=== PATIENT | female | born 1940 | race Caucasian/White ===

== ENCOUNTER 2024-02-19 17:58 | Emergency (ER) | payer OTHER ==
[2024-02-19 18:32] VITALS: TEMP 98.2; BMI 29.4
[2024-02-19 19:04] LABS: ANION GAP 7 mmol/L (4-13); CALCIUM 8.7 mg/dl (8.5-10.1); CHLORIDE 102 mmol/L (98-107); CO2 30 mmol/L (21-32); CREATININE 1.4 mg/dl (0.6-1.3); GLUCOSE,RANDOM 110 mg/dl (74-106); SODIUM 139 mmol/L (136-145)
[2024-02-19] MEDS ORDERED: DALBAVANCIN HCL 500 MG VIAL (RESTRICTED TO ID ONLY) IVPB ONE (19:26)
[2024-02-19] MEDS: DALBAVANCIN HCL 1,500 MG in DEXTROSE 5%-WATER - 500 ML IVPB ONE (19:35)
[2024-02-19 20:43] VITALS: BP 154/77; PULSE 79; RESP 16
== END 2024-02-19 21:00 | disposition home or self-care (01) ==
LOC: FER 17:58
DX: M17.12 Unilateral primary osteoarthritis, left knee (principal); M25.562 Pain in left knee; W01.198A Fall on same level from slipping, tripping and stumbling with subsequent striking against other object, initial encounter; Y92.481 Parking lot as the place of occurrence of the external cause
CPT/HCPCS: 36415; 73562-TC-LT-FY; 80048; 99284-25; J0875

== ENCOUNTER 2024-03-07 18:38 | Emergency (ER) | payer OTHER ==
[2024-03-07 18:48] VITALS: BP 149/70; PULSE 73; RESP 20; TEMP 97.7; BMI 30.4
[2024-03-07] MEDS: DALBAVANCIN HCL 1,500 MG in DEXTROSE 5%-WATER - 500 ML IVPB ONE (20:01)
== END 2024-03-07 20:46 | disposition home or self-care (01) ==
LOC: FER 18:38
DX: L03.116 Cellulitis of left lower limb (principal)
CPT/HCPCS: 99284-25; J0875

== ENCOUNTER 2024-04-11 12:28 | Inpatient (IN) | payer OTHER ==
[2024-04-11] MEDS ORDERED: CEFEPIME HCL/D5W 2 GM/50 ML BAG IVPB ONE (14:07)
[2024-04-11] MEDS ORDERED: VANCOMYCIN 1,500 MG in DEXTROSE 5%-WATER - 250 ML IVPB ONE (14:07)
[2024-04-11] MEDS ORDERED: CEFEPIME HCL 2 GM VIAL (RESTRICTED TO ID) ONE (14:09)
[2024-04-11 14:57] LABS: INR 1.18 (0.83-1.09); PROTHROMBIN TIME (PATIENT) 13.4 SEC (9.7-13.0)
[2024-04-11 14:59] LABS: HEMATOCRIT 33.3 % (32.4-45.2); HEMOGLOBIN 9.8 G/dL (10.7-15.3); MCH 22.4 pg (25.7-33.7); MCHC 29.3 g/dl (32.0-36.0); MEAN CELL VOLUME 76.5 fl (80-96); MEAN PLT VOLUME 8.7 fl (7.5-11.1); PLATELET COUNT 325.9 10^3/uL (134-434); RBC 4.35 10^6/uL (3.60-5.2); RDW 17.8 % (11.6-15.6); WHITE BLOOD COUNT 9.5 10^3/uL (4.0-10.8)
[2024-04-11 15:10] LABS: ALBUMIN 4.2 g/dl (3.4-5.0); BILIRUBIN,TOTAL 0.6 mg/dl (0.2-1); CALCIUM 9.1 mg/dl (8.5-10.1); CREATININE 1.1 mg/dl (0.6-1.3); TOT PROT 6.8 g/dl (6.4-8.2)
[2024-04-11 15:12] LABS: POTASSIUM 4.9 mmol/L (3.5-5.1)
[2024-04-11 15:41] LABS: ERYTHROCYTE SEDIMENTATION RATE 19 mm/hr (0-30)
[2024-04-11 17:21] LABS: PLATELET ESTIMATE ADEQUATE
[2024-04-12 00:24] VITALS: BMI 28.8
[2024-04-12] MEDS ORDERED: LISINOPRIL 20 MG TABLET PO SCH (10:00)
[2024-04-12 10:03] LABS: HEMATOCRIT 32.9 % (32.4-45.2); HEMOGLOBIN 9.8 GM/dL (10.7-15.3); MCH 22.2 pg (25.7-33.7); MCHC 29.9 g/dl (32.0-36.0); MEAN CELL VOLUME 74.2 fl (80-96); MEAN PLT VOLUME 7.8 fl (7.5-11.1); PLATELET COUNT 326 10^3/uL (134-434); RBC 4.43 M/mm3 (3.60-5.2); RDW 17.2 % (11.6-15.6); WHITE BLOOD COUNT 8.5 K/mm3 (4.0-10.0)
[2024-04-12 10:10] LABS: INR 1.03 (0.83-1.09); PROTHROMBIN TIME (PATIENT) 11.8 SEC (9.7-13.0)
[2024-04-12] MEDS: LISINOPRIL 20 MG TABLET PO SCH (10:20)
[2024-04-12] MEDS: metoPROLOL SUCCINATE 25 MG TAB.SR.24H (FP) PO SCH (10:20)
[2024-04-12] MEDS: ENOXAPARIN NA (PORCINE) 80 MG/0.8 ML DISP.SYRIN SQ SCH (10:20)
[2024-04-12] MEDS: PANTOPRAZOLE 40 MG TABLET PO SCH (10:21)
[2024-04-12 10:57] LABS: POTASSIUM 4.2 mmol/L (3.5-5.1)
[2024-04-12 11:03] LABS: ALBUMIN 3.6 g/dl (3.4-5.0); BLOOD UREA NITROGEN 25.1 mg/dL (7-18); CALCIUM 9.2 mg/dL (8.5-10.1); MAGNESIUM 2.6 mg/dL (1.8-2.4)
[2024-04-12 11:06] LABS: CREATININE 1.1 mg/dL (0.55-1.3)
[2024-04-12 11:07] LABS: BILIRUBIN,TOTAL 0.5 mg/dL (0.2-1); PHOSPHOROUS 3.6 mg/dL (2.5-4.9)
[2024-04-12] MEDS: CEFEPIME 1 GM in DEXTROSE 5%-WATER 100 ML IVPB SCH (13:40)
[2024-04-12] MEDS: VANCOMYCIN/WATER FOR INJ (PEG) 1,000 MG/200 ML BAG IVPB SCH (15:27)
[2024-04-12] MEDS: ACETAMINOPHEN 500 MG TABLET (FP) PO PRN (22:12)
[2024-04-12] MEDS: ATORVASTATIN CA 40 MG TABLET (FP) PO SCH (22:12)
[2024-04-13] MEDS: FUROSEMIDE 20 MG TABLET (FP) PO SCH (10:16)
[2024-04-13 11:16] LABS: BASO % 1.4 % (0-2.0); EOS % 3.9 % (0-4.5); HEMOGLOBIN 8.8 GM/dL (10.7-15.3); LYMPH % 21.6 % (8-40); MCH 22.2 pg (25.7-33.7); MCHC 30.2 g/dl (32.0-36.0); MEAN CELL VOLUME 73.4 fl (80-96); MEAN PLT VOLUME 7.8 fl (7.5-11.1); MONO % 7.4 % (3.8-10.2); NEUT % 65.7 % (42.8-82.8); PLATELET COUNT 286 10^3/uL (134-434); RBC 3.96 M/mm3 (3.60-5.2); RDW 16.8 % (11.6-15.6); WHITE BLOOD COUNT 7.9 K/mm3 (4.0-10.0)
[2024-04-13 11:44] LABS: POTASSIUM 4.4 mmol/L (3.5-5.1)
[2024-04-13 11:48] LABS: ALBUMIN 3.2 g/dl (3.4-5.0); BLOOD UREA NITROGEN 22.2 mg/dL (7-18); CALCIUM 8.6 mg/dL (8.5-10.1)
[2024-04-13 11:50] LABS: MAGNESIUM 2.2 mg/dL (1.8-2.4)
[2024-04-13 11:53] LABS: BILIRUBIN,TOTAL 0.5 mg/dL (0.2-1); CREATININE 1.1 mg/dL (0.55-1.3); TOT PROT 6.6 g/dl (6.4-8.2)
[2024-04-14 10:30] LABS: HEMATOCRIT 26.6 % (32.4-45.2); HEMOGLOBIN 8.3 GM/dL (10.7-15.3); MCH 22.8 pg (25.7-33.7); MCHC 31.1 g/dl (32.0-36.0); MEAN CELL VOLUME 73.5 fl (80-96); MEAN PLT VOLUME 7.8 fl (7.5-11.1); PLATELET COUNT 249 10^3/uL (134-434); RBC 3.62 M/mm3 (3.60-5.2); RDW 16.5 % (11.6-15.6); WHITE BLOOD COUNT 7.8 K/mm3 (4.0-10.0)
[2024-04-14 10:47] LABS: POTASSIUM 4.5 mmol/L (3.5-5.1)
[2024-04-14 10:50] LABS: CALCIUM 8.7 mg/dL (8.5-10.1)
[2024-04-14 10:51] LABS: ALBUMIN 3.1 g/dl (3.4-5.0); BLOOD UREA NITROGEN 25.2 mg/dL (7-18)
[2024-04-14 10:54] LABS: CREATININE 1.1 mg/dL (0.55-1.3)
[2024-04-14 10:56] LABS: BILIRUBIN,TOTAL 0.4 mg/dL (0.2-1); TOT PROT 6.2 g/dl (6.4-8.2)
[2024-04-15 09:53] LABS: HEMATOCRIT 27.4 % (32.4-45.2); HEMOGLOBIN 8.5 GM/dL (10.7-15.3); MCH 22.6 pg (25.7-33.7); MEAN CELL VOLUME 72.9 fl (80-96); MEAN PLT VOLUME 7.6 fl (7.5-11.1); PLATELET COUNT 251 10^3/uL (134-434); RBC 3.76 M/mm3 (3.60-5.2); RDW 16.9 % (11.6-15.6); WHITE BLOOD COUNT 8.3 K/mm3 (4.0-10.0)
[2024-04-15] MEDS: MELATONIN 5 MG TABLETS PO ONE (21:06)
[2024-04-16 09:34] LABS: HEMATOCRIT 28.9 % (32.4-45.2); HEMOGLOBIN 8.8 GM/dL (10.7-15.3); MCH 22.5 pg (25.7-33.7); MCHC 30.6 g/dl (32.0-36.0); MEAN CELL VOLUME 73.6 fl (80-96); MEAN PLT VOLUME 7.8 fl (7.5-11.1); PLATELET COUNT 270 10^3/uL (134-434); RBC 3.92 M/mm3 (3.60-5.2); RDW 16.8 % (11.6-15.6)
[2024-04-16 09:55] LABS: POTASSIUM 4.8 mmol/L (3.5-5.1)
[2024-04-16 09:58] LABS: ALBUMIN 3.2 g/dl (3.4-5.0); CALCIUM 8.9 mg/dL (8.5-10.1)
[2024-04-16 09:59] LABS: BLOOD UREA NITROGEN 25.3 mg/dL (7-18)
[2024-04-16 10:02] LABS: CREATININE 0.9 mg/dL (0.55-1.3)
[2024-04-16 10:03] LABS: BILIRUBIN,TOTAL 0.4 mg/dL (0.2-1); TOT PROT 6.5 g/dl (6.4-8.2)
[2024-04-16] MEDS: MELATONIN 5 MG TABLETS PO PRN (22:11)
[2024-04-17] MEDS ORDERED: ONDANSETRON 4 MG/2 ML VIAL ONE (08:27)
[2024-04-17] MEDS ORDERED: LIDOCAINE HCL 1%, 10 MG/ML (20ML VIAL) ONE (09:11)
[2024-04-17] MEDS ORDERED: BUPIVACAINE HCL/PF 0.5% (5MG/ML) 10 ML VIAL ONE (09:12)
[2024-04-17] MEDS ORDERED: ACETAMINOPHEN INJECTION 100 ML ONE (09:35)
[2024-04-17] MEDS ORDERED: MIDAZOLAM HCL 2 MG/2 ML SINGLE DOSE VIAL ONE (09:38)
[2024-04-17] MEDS: LIDOCAINE HCL 1%, 10 MG/ML (20ML VIAL) INF ONE ×2 (09:53)
[2024-04-17] MEDS: BUPIVACAINE HCL/PF 0.5% (5 MG/ML) 30 ML VIAL IJ ONE ×2 (09:53)
[2024-04-17 13:20] LABS: HEMATOCRIT 29.5 % (32.4-45.2); MCH 22.3 pg (25.7-33.7); MCHC 30.3 g/dl (32.0-36.0); MEAN CELL VOLUME 73.4 fl (80-96); PLATELET COUNT 260 10^3/uL (134-434); RBC 4.03 M/mm3 (3.60-5.2); RDW 16.7 % (11.6-15.6); WHITE BLOOD COUNT 8.1 K/mm3 (4.0-10.0)
[2024-04-17 13:41] LABS: POTASSIUM 4.7 mmol/L (3.5-5.1)
[2024-04-17 13:45] LABS: ALBUMIN 3.3 g/dl (3.4-5.0); BLOOD UREA NITROGEN 25.6 mg/dL (7-18); CALCIUM 8.7 mg/dL (8.5-10.1)
[2024-04-17 13:48] LABS: CREATININE 1.1 mg/dL (0.55-1.3)
[2024-04-17 13:50] LABS: BILIRUBIN,TOTAL 0.4 mg/dL (0.2-1); TOT PROT 6.9 g/dl (6.4-8.2)
[2024-04-17] MEDS: VANCOMYCIN/WATER FOR INJ (PEG) 1,000 MG/200 ML BAG IVPB SCH (15:40)
[2024-04-17] MEDS: CEFEPIME 1 GM in DEXTROSE 5%-WATER 100 ML IVPB SCH (18:34)
[2024-04-17] MEDS: RIVAROXABAN 15 MG TABLET PO SCH (21:29)
[2024-04-17] MEDS: ATORVASTATIN CA 40 MG TABLET (FP) PO SCH (21:29)
[2024-04-17] MEDS: MELATONIN 5 MG TABLETS PO PRN (21:30)
[2024-04-18 09:01] LABS: HEMOGLOBIN 8.8 GM/dL (10.7-15.3); MCH 22.4 pg (25.7-33.7); MCHC 30.2 g/dl (32.0-36.0); MEAN CELL VOLUME 74.1 fl (80-96); MEAN PLT VOLUME 7.8 fl (7.5-11.1); PLATELET COUNT 265 10^3/uL (134-434); RBC 3.91 M/mm3 (3.60-5.2); RDW 16.7 % (11.6-15.6); WHITE BLOOD COUNT 8.6 K/mm3 (4.0-10.0)
[2024-04-18 09:22] LABS: POTASSIUM 4.9 mmol/L (3.5-5.1)
[2024-04-18 09:24] LABS: ALBUMIN 3.3 g/dl (3.4-5.0); BLOOD UREA NITROGEN 25.5 mg/dL (7-18); CALCIUM 8.9 mg/dL (8.5-10.1)
[2024-04-18 09:27] LABS: CREATININE 0.9 mg/dL (0.55-1.3)
[2024-04-18 09:29] LABS: BILIRUBIN,TOTAL 0.4 mg/dL (0.2-1); TOT PROT 6.6 g/dl (6.4-8.2)
[2024-04-18] MEDS: PANTOPRAZOLE 40 MG TABLET PO SCH (10:10)
[2024-04-18] MEDS: metoPROLOL SUCCINATE 25 MG TAB.SR.24H (FP) PO SCH (10:10)
[2024-04-18] MEDS: FUROSEMIDE 20 MG TABLET (FP) PO SCH (10:10)
[2024-04-18] MEDS: LISINOPRIL 20 MG TABLET PO SCH (10:10)
[2024-04-19 10:09] LABS: HEMATOCRIT 28.9 % (32.4-45.2); HEMOGLOBIN 8.9 GM/dL (10.7-15.3); MCH 22.5 pg (25.7-33.7); MCHC 30.8 g/dl (32.0-36.0); MEAN PLT VOLUME 7.9 fl (7.5-11.1); PLATELET COUNT 273 10^3/uL (134-434); RBC 3.96 M/mm3 (3.60-5.2); RDW 16.7 % (11.6-15.6); WHITE BLOOD COUNT 7.6 K/mm3 (4.0-10.0)
[2024-04-19 10:32] LABS: POTASSIUM 4.7 mmol/L (3.5-5.1)
[2024-04-19 10:37] LABS: BLOOD UREA NITROGEN 23.7 mg/dL (7-18); CALCIUM 8.8 mg/dL (8.5-10.1)
[2024-04-19 10:41] LABS: CREATININE 0.9 mg/dL (0.55-1.3)
[2024-04-19] MEDS: FUROSEMIDE 40 MG/4 ML INJECTABLE VIAL IVPUSH SCH (12:08)
[2024-04-20 10:47] LABS: HEMATOCRIT 30.3 % (32.4-45.2); HEMOGLOBIN 9.5 GM/dL (10.7-15.3); MCH 22.6 pg (25.7-33.7); MCHC 31.3 g/dl (32.0-36.0); MEAN CELL VOLUME 72.2 fl (80-96); MEAN PLT VOLUME 7.8 fl (7.5-11.1); PLATELET COUNT 313 10^3/uL (134-434); RBC 4.19 M/mm3 (3.60-5.2); RDW 16.5 % (11.6-15.6); WHITE BLOOD COUNT 10.8 K/mm3 (4.0-10.0)
[2024-04-20 14:54] LABS: POTASSIUM 4.9 mmol/L (3.5-5.1)
[2024-04-20 14:55] LABS: CALCIUM 8.6 mg/dL (8.5-10.1)
[2024-04-20 14:56] LABS: BLOOD UREA NITROGEN 28.2 mg/dL (7-18)
[2024-04-20 14:59] LABS: CREATININE 1.1 mg/dL (0.55-1.3)
[2024-04-20] MEDS: ACETAMINOPHEN 500 MG TABLET (FP) PO PRN (21:15)
[2024-04-21 11:51] VITALS: BP 134/98; PULSE 72; RESP 17; TEMP 97.7
== END 2024-04-21 12:38 | disposition home or self-care (01) | DRG 478 ==
LOC: FER 12:28 → J6S 19:15
PROVIDERS: ADMIT Internal Medicine; ATTEND Internal Medicine
PROC: 0Q9Q3ZX Drainage of Right Toe Phalanx, Percutaneous Approach, Diagnostic (ICD-10-PCS; principal; 2024-04-17 09:30)
DX: M86.171 Other acute osteomyelitis, right ankle and foot (principal); I48.20 Chronic atrial fibrillation, unspecified; L03.116 Cellulitis of left lower limb; L03.115 Cellulitis of right lower limb; I10 Essential (primary) hypertension; I89.0 Lymphedema, not elsewhere classified; H54.8 Legal blindness, as defined in USA; S92.911A Unspecified fracture of right toe(s), initial encounter for closed fracture; E78.5 Hyperlipidemia, unspecified; K21.9 Gastro-esophageal reflux disease without esophagitis; X58.XXXA Exposure to other specified factors, initial encounter; Y93.9 Activity, unspecified; Y92.89 Other specified places as the place of occurrence of the external cause; Y99.9 Unspecified external cause status
CPT/HCPCS: 36415; 73630-TC-RT-FY; 73660-TC-FY; 73720-TC; 80048; 80053; 80061; 82272; 82607; 82728; 82746; 83036; 83540; 83550; 83735; 84100; 85025; 85027; 85045; 85610; 85651; 85730; 86140; 87040; 87070; 87075; 93005; 93922; 93925-TC; 93971-TC; 97116-GP; 97162-GP; 99285-25; G0480; J0131

== ENCOUNTER 2024-09-18 21:49 | Inpatient (IN) | payer OTHER ==
[2024-09-18 23:16] LABS: HEMATOCRIT 35.1 % (34.1-44.9); HEMOGLOBIN 10.1 g/dL (11.2-15.7); MCHC 28.8 g/dl (32.2-35.5); MEAN CELL VOLUME 76.5 fl (79.4-94.8); MEAN PLT VOLUME 9.6 fl (9.4-12.3); PLATELET COUNT # 366 x10^3/uL (182-369); RDW 16.3 % (12.5-17.0)
[2024-09-18 23:30] LABS: ALBUMIN 4.2 g/dl (3.4-5.0); ALK PHOS 110 U/L (45-117); ANION GAP 9 mmol/L (4-13); BILIRUBIN,TOTAL 0.5 mg/dl (0.2-1); CALCIUM 9.1 mg/dl (8.5-10.1); CHLORIDE 101 mmol/L (98-107); CO2 29 mmol/L (21-32); CREATININE 1.3 mg/dl (0.6-1.3); GLUCOSE,RANDOM 108 mg/dl (74-106); MAGNESIUM 2.3 mg/dL (1.8-2.4); POTASSIUM 4.8 mmol/L (3.5-5.1); SGOT/AST 26 U/L (15-37); SGPT/ALT 19 U/L (7-52); SODIUM 139 mmol/L (136-145); TOT PROT 7.1 g/dl (6.4-8.2)
[2024-09-19] MEDS ORDERED: PIPERACILLIN/TAZOBACTAM 4.5 GM VIAL IVPB ONE (00:03)
[2024-09-19] MEDS ORDERED: VANCOMYCIN 1,000 MG VIAL (RESTRICTED TO ID ONLY) ONE (00:04)
[2024-09-19] MEDS: PIPERACILLIN/TAZOB 4.5 GM 4.5 GM in DEXTROSE 5%-WATER 100 ML IVPB ONE (00:06)
[2024-09-19] MEDS: VANCOMYCIN 1,000 MG in DEXTROSE 5%-WATER - 250 ML IVPB ONE (00:29)
[2024-09-19 03:56] VITALS: BMI 29.7
[2024-09-19] MEDS: ACETAMINOPHEN 325 MG TABLET (FP) PO PRN (05:33)
[2024-09-19 08:06] LABS: ABSOLUTE IMMATURE GRANULOCYTES 0.02 x10^3/uL (0.0-0.031); BASOPHILS # 0.05 x10^3/uL (0.01-0.08); EOSINOPHIL % 3.1 % (0.7-5.8); EOSINOPHILS # 0.31 x10^3/uL (0.04-0.36); HEMATOCRIT 31.1 % (34.1-44.9); MCHC 28.9 g/dl (32.2-35.5); MEAN CELL VOLUME 76.4 fl (79.4-94.8); MEAN PLT VOLUME 9.7 fl (9.4-12.3); MONOCYTE # 0.82 x10^3/uL (0.24-0.86); MONOCYTE % 8.3 % (4.7-12.5); PLATELET COUNT # 270 x10^3/uL (182-369); RDW 16.1 % (12.5-17.0)
[2024-09-19 08:51] LABS: CALCIUM 8.4 mg/dl (8.5-10.1); CREATININE 1.1 mg/dl (0.6-1.3); POTASSIUM 4.2 mmol/L (3.5-5.1)
[2024-09-19] MEDS: LISINOPRIL 20 MG TABLET PO SCH (09:57)
[2024-09-19] MEDS: metoPROLOL SUCCINATE 25 MG TAB.SR.24H (FP) PO SCH (09:57)
[2024-09-19] MEDS: DORZOLAMIDE HCL/TIMOLOL OPHTHALMIC SOLUTION 10 ML BOTTLE OU SCH (09:58)
[2024-09-19] MEDS: BRIMONIDINE TARTRATE 0.2% OPHTHALMIC 5 ML BOTTLE OU SCH (09:58)
[2024-09-19] MEDS ORDERED: PROMETHAZINE HCL 25 MG/1 ML VIAL ONE (16:57)
[2024-09-19] MEDS: RIVAROXABAN 15 MG TABLET PO SCH (17:53)
[2024-09-19] MEDS: CEFAZOLIN 1 GM/D5W 1 GRAM/50 ML BAG IVPB SCH (17:53)
[2024-09-20] MEDS ORDERED: VANCOMYCIN/WATER FOR INJ (PEG) 1,000 MG/200 ML BAG IVPB SCH (00:30)
[2024-09-20] MEDS ORDERED: VANCOMYCIN 1,000 MG in DEXTROSE 5%-WATER - 250 ML IVPB SCH (00:30)
[2024-09-20] MEDS: FUROSEMIDE 40 MG TABLET (FP) PO SCH (10:32)
[2024-09-20] MEDS: PANTOPRAZOLE 40 MG TABLET PO SCH (10:32)
[2024-09-20 11:31] LABS: HEMATOCRIT 33.7 % (34.1-44.9); HEMOGLOBIN 9.5 g/dL (11.2-15.7); MCHC 28.2 g/dl (32.2-35.5); MEAN CELL VOLUME 77.1 fl (79.4-94.8); MEAN PLT VOLUME 9.4 fl (9.4-12.3); PLATELET COUNT # 291 x10^3/uL (182-369)
[2024-09-20 12:07] LABS: BILIRUBIN,TOTAL 0.4 mg/dl (0.2-1); POTASSIUM 4.6 mmol/L (3.5-5.1); TOT PROT 6.8 g/dl (6.4-8.2)
[2024-09-21 04:40] VITALS: RESP 18; TEMP 98.2
[2024-09-21 07:57] LABS: HEMATOCRIT 33.2 % (34.1-44.9); HEMOGLOBIN 9.4 g/dL (11.2-15.7); MCHC 28.3 g/dl (32.2-35.5); MEAN CELL VOLUME 77.4 fl (79.4-94.8); MEAN PLT VOLUME 9.7 fl (9.4-12.3); PLATELET COUNT # 276 x10^3/uL (182-369); RDW 16.1 % (12.5-17.0)
[2024-09-21 08:31] LABS: BILIRUBIN,TOTAL 0.4 mg/dl (0.2-1); POTASSIUM 4.4 mmol/L (3.5-5.1); TOT PROT 6.7 g/dl (6.4-8.2)
[2024-09-21 10:40] VITALS: BP 146/87; PULSE 67
== END 2024-09-21 10:50 | DRG 603 ==
LOC: FER 21:49 → FM/S 09-19 00:06 → UNDOADMIN 09-19 03:11
PROVIDERS: ADMIT Hospitalist
DX: L03.115 Cellulitis of right lower limb (principal); I50.32 Chronic diastolic (congestive) heart failure; I11.0 Hypertensive heart disease with heart failure; L03.116 Cellulitis of left lower limb; J44.9 Chronic obstructive pulmonary disease, unspecified; E78.5 Hyperlipidemia, unspecified; I89.0 Lymphedema, not elsewhere classified; I48.91 Unspecified atrial fibrillation; D64.9 Anemia, unspecified; H54.8 Legal blindness, as defined in USA
CPT/HCPCS: 0241U-QW; 36415; 71045-TC-FY; 80048; 80053; 82550; 83605; 83735; 84484; 85025; 85027; 87040; 93005; 93306-TC; 97116-GP; 97162-GP; 99285-25